=== PATIENT | male | born 1930 | race Caucasian/White ===

== ENCOUNTER 2018-01-19 09:34 | Emergency (ER) | payer OTHER, BC ==
[~2018-01-19] VITALS: Ht 182.9 cm; Wt 127.0 kg
[~2018-01-19 09:34] MED LIST: ACETAMINOPHEN325 M1; ADVAIR 100-501 EACH; ASPIRIN EC81 M1 PO; ASPIRIN325 PO; BENICAR20 MG; CARDURA1 MG PO; DEXILANT60 MG; FENOFIBRATE160 MG PO; FIORICET 50-321 EACH PO; FISH OIL 1,001000 M2 PO; LIPITOR20 MG; LOSARTAN POTASS50 MG PO; LOVAZA1000 MG PO; NORCO 5-325 TA1 EACH PO; PHENERGAN 25 MG25 M1 PO; PLAVIX 75 MG TA75 M1 PO; PRADAXA75 MG PO; SOTALOL80 MG PO; VICODIN 5-5001 EACH PO
[2018-01-19 10:22] LABS: ABSOLUTE NEUTROPHILS 3.5 thou/uL (1.4-8.2); BASOPHILS 1.7 % (0.0-2.0); EOSINOPHILS 4.9 % (0.0-3.0); HEMATOCRIT 35.6 % (42.0-52.0); HEMOGLOBIN 11.7 gm/dL (14.0-18.0); LYMPHOCYTES 23.8 % (24.0-44.0); MCH 29.2 pg (26.0-34.0); MCV 88.6 fL (80.0-100.0); MONOCYTES 9.2 % (1.0-8.0); PLATELET COUNT 198 thou/uL (150-400); POLYS 60.4 % (36.0-66.0); RBC 4.01 mil/uL (4.50-6.00); RDW 18.8 % (10.5-14.5); WBC 5.9 thou/uL (4.0-11.0)
[2018-01-19 10:31] LABS: CALCIUM 9.3 mg/dL (8.5-10.1); CREATININE 1.2 mg/dL (0.7-1.3); POTASSIUM 3.8 mmol/L (3.5-5.1)
[2018-01-19 10:37] LABS: TOTAL BILIRUBIN 0.7 mg/dL (<0.1-1.0); TOTAL PROTEIN 7.1 g/dL (6.4-8.2)
[2018-01-19 11:03] LABS: ANISOCYTOSIS 2+; MICROCYTES 1+; PLATELET ESTIMATE NORMAL
[2018-01-19 11:38] LABS: URINE BILIRUBIN NEGATIVE (Negative); URINE BLOOD NEGATIVE (Negative); URINE CLARITY CLEAR; URINE COLOR YELLOW; URINE GLUCOSE-RANDOM* NEGATIVE (Negative); URINE KETONES NEGATIVE (Negative); URINE LEUKOCYTES NEGATIVE (Negative); URINE NITRITE NEGATIVE (Negative); URINE PROTEIN (DIPSTICK) NEGATIVE (Negative); URINE UROBILINOGEN 0.2 E.U./dl (0.2-1.0)
== END 2018-01-19 12:58 | disposition home or self-care (01) ==
LOC: ER 09:34
PROVIDERS: Nurse Practitioner Family
DX: K56.41 Fecal impaction (principal); J44.9 Chronic obstructive pulmonary disease, unspecified; Z88.5 Allergy status to narcotic agent; Z88.8 Allergy status to other drugs, medicaments and biological substances; Z91.018 Allergy to other foods

== ENCOUNTER → 2019-01-06 | Outpatient (CLI) | payer OTHER, BC | LOC: RAD 09:09 | DX: J43.1 Panlobular emphysema (principal); J98.11 Atelectasis; J98.4 Other disorders of lung ==